=== PATIENT | male | born 1980 | race Caucasian/White ===

== ENCOUNTER 2017-10-21 17:58 | Emergency (ER) | payer SELFPAY ==
[~2017-10-21] VITALS: Ht 188 cm; Wt 78.0 kg
[2017-10-21 18:42] VITALS: BP 141/95
== END 2017-10-21 19:10 | disposition left against medical advice (07) ==
LOC: ER 18:30
DX: R42 Dizziness and giddiness (principal); F41.9 Anxiety disorder, unspecified; R03.0 Elevated blood-pressure reading, without diagnosis of hypertension; F17.210 Nicotine dependence, cigarettes, uncomplicated; F13.20 Sedative, hypnotic or anxiolytic dependence, uncomplicated
CPT/HCPCS: 99283